=== PATIENT | male | born 1940 | race Caucasian/White ===

== ENCOUNTER 2021-07-20 12:35 | Emergency (ER) | payer MEDICARE, OTHER ==
[~2021-07-20] VITALS: Ht 172.7 cm; Wt 95.3 kg
--- OUTSIDE RECORDS SUMMARY | 2021-07-20 12:42 | XMS REPORT | Clinical Summary ---
Author Author [facility] Organization [facility] Address Unknown Phone Unavailable Care Team Providers Care Director Of Early Childhood Education Name Role Phone Marky Mccoy MD PP Allergies Comments Active Allergy Reactions Severity Noted Date Codeine 10/09/2019 Fentanyl 10/09/2019 Oxycodone 10/09/2019 Medications End Date Status Medication Sig Dispensed Refills Start Date Active amLODIPine (NORVASC) 10 Take 10 mg by 0 09/07/ 201 mg tablet mouth 1 (one) 9 time each day. Active ezetimibe (ZETIA) 10 mg Take 10 mg by 0 tablet mouth 1 (one) 9 time each day. Active INSULIN SUBCUTANEOUS Inject under 0 PUMP, NOVOLOG, 100 the skin UNIT/ML INSULIN PUMP continuously. INFUSION (NovoLOG) Active dulaglutide (TRULICITY) Inject under 0 1.5 mg/0.5 mL pen the skin. injector Active simvastatin (ZOCOR) 20 mg 0 tablet 0 Active LANTUS SOLOSTAR U-100 0 INSULIN 100 unit/mL (3 0 mL) insulin pen injection Active Problems Problem Noted Date Dementia associated with other underlying disease wit hout behavioral 10/09/2019 disturbance Last Assessment & Plan: Formatting of this note might be differ ent from the original. 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 He does not drive. 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 Memory s ignificant impaired on exam. MMSE: 04/26. No behavioral changes. Sx present ation consistent with dementia, specifically Alzheimer's. Reviewed the MRI brain scan which was completed on 12/05/2016 and showed Diffuse cerebral atrophy with some periventricular white matter small vessel ischemic krishnamurthy ge. CT head on 08/15/2019: Sulcal and ventricular prominence consistent w ith volume loss. Periventricular and deep white matter hypoattenuation. The most likely etiology is Alzheimer's dx. I advised pt to continue him living at home (rather than in a senior care) as she does have people who come to the house on a daily basis. I do not believe he would be able to get thr ough a neuropsychological exam. Previously failed Quetiapine 25 (2016), Remeron 15 (2017), Carvedilol 6.25 (2019), Midodrine (2016), Donepezil (), and Memantine (dizziness). Dizziness 10/09/2019 Last Assessment & Plan: Formatting of this note might be differ ent from the original. Waxing/waning, onset 2 yrs ago. Most li linda drug-induced. Discontinued Memantine. Reports no recent presyncopa l episodes. Last episode was in Sep 2019. Social History Date Tobacco Use Types Packs/Day Years Used Unknown If Ever Smoked Smokeless Tobacco: Never Used Comments Alcohol Use Standard Drinks/Week Not Currently 0 (1 standard drink = 0.6 o z pure alcohol) Sex Assigned at Date Recorded Not on file Industry Job Start Date Occupation Not on file Not on file Not on file Last Filed Vital Signs Reading Time Taken Comments Vital Sign 131/78 06/07/2020 3:14 PM CDT Blood Pressure 75 06/07/2020 3:14 PM CDT Pulse - - Temperature - - Respiratory Rate - - Oxygen Saturation - - Inhaled Oxygen Concentration 95.3 kg (210 lb) 06/07/2020 3:14 PM CDT Weight 185.4 cm (6' 1") 06/07/2020 3:14 PM CDT Height 27.71 06/07/2020 3:14 PM CDT Body Mass Index Plan of Treatment Health Maintenance Due Date Last Done Comments Lipid Panel 1940 Medicare Wellness 1940 MMR Vaccines (1 of 1 - 1940 Standard series) Varicella Vaccines (1 of 1940 2 - 2-dose childhood series) COVID-19 Vaccine (1) 1951 Depression Screening 1951 DTaP,Tdap,and Td Vaccines 1958 (1 - Tdap) Zoster Vaccines (1 of 2) 1989 Glaucoma Screening 65+ Yr 2004 Pneumococcal 65+ Yr (1 of 2004 1 - PPSV23) Influenza Vaccine (Season 06/28/2021 Ended) HIB Vaccines Aged Out No longer eligible based on patient's age to complete this topic HPV Vaccines Aged Out No longer eligible based on patient's age to complete this topic Hepatitis A Vaccines Aged Out No longer eligibl e based on patient's age to complete this topic Hepatitis B Vaccines Aged Out No longer eligibl e based on patient's age to complete this topic IPV Vaccines Aged Out No longer eligible based on patient's age to complete this topic Meningococcal Vaccine Aged Out No longer eligib le based on patient's age to complete this topic Results Not on filefrom Last 3 Months Insurance Type Payer Benefit Subscriber ID Effective Phone Address Plan / Dates Group MEDICARE MEDICARE [id number] 2004-P PART A AND resent B [id number] 2018-P FOR LIFE resent [phone] Advance Directives Patient Assessment Nurse Explanation Type Date Recorded Advance Directives and Living Will Power of News Production Supervisor Care Teams Start Date End Date Director Of Early Childhood Education Relationship Specialty 08/12/19 Marky Mccoy MD PCP - General Family [address] [place] [phone]
--- OUTSIDE RECORDS SUMMARY | 2021-07-20 12:42 | XMS REPORT | Continuity of Care Document ---
Author Author [facility] Organization [facility] Address [address] [place] [address] Phone Support Name Relationship Address Phone Siri Chavarria PRS [address] [place] [address] Marky Mccoy PRS [address] [place] [address] Allergies, Adverse Reactions, Alerts Allergen Type Severity Reaction Last Updated Verified Status hydrocodone Allergy Tayler re Chest pain, [facility] Yes Active tramadol Allergy Severe Chest pain, Irregular heart beat July 06, 2021 1:58pm Yes Active donepezil Adverse Reaction Moderate cried all the time/felt like he was going to July 06, 2021 1:58pm Yes Active Medications Medication Status Dose Units Route Directions Qty Days Start Date End Date Instructions Insulin Glargine (Lantus Solostar U-100 Insulin) 100 unit/mL (3 mL) insulin pen Discontinued 45 UNIT SUBCUT TWICE A DAY July 20, 2020 2:55pm November 02, 2020 12:42pm Insulin Aspart U-100 (Novolog Flexpen U- 100 Insulin) 100 unit/mL (3 mL) insulin pen Discontinued 15 UNIT SUBCUT THREE TIMES A DAY October 05, 2020 9:32am December 20, 2020 1:48pm Inject 15 units under the skin TID before meals Blood Sugar Diagnostic (Freestyle Lite Strips) strip Active 0 .ROUTE .MEDSUPPLY October 05, 2020 9:46am Use to test once da arnie Insulin Glargine (Lantus Solostar U-100 Insulin) 100 unit/mL (3 mL) insulin pen Discontinued 50 UNIT SUBCUT TWICE A DAY December 15, 2020 11:24am May 31, 2021 11:42am Ezetimibe Discontinued 10 MG PO DAILY 90 February 18th, 2021 7:18pm 2021 2:26pm Amlodipine (Norvasc) 10 mg tablet Di scontinued 10 MG PO D AILY December 15, 2020 7:19pm May 31, 2021 11:42am Insulin Aspart U-100 (Novolog Flexpen U- 100 Insulin) 100 unit/mL (3 mL) insulin pen Discontinued 15 UNIT SUBCUT THREE TIMES A DAY December 20, 2020 1:48pm March 08, 2021 9:03am Inject 15 unit s under the skin TID before meals Insulin Aspart U-100 (Novolog Flexpen U- 100 Insulin) 100 unit/mL (3 mL) insulin pen Active 15 UNIT SUBCUT THREE TIMES A DAY March 08, 2021 9:03am Inject 15 units under the skin TID befor e meals Ezetimibe Active 10 MG PO DAILY 2021 2:26pm Amlodipine (Norvasc) 10 mg tablet Active 10 MG PO DAILY May 31, 2021 11 :42am Insulin Glargine (Lantus Solostar U-100 Insulin) 100 unit/mL (3 mL) insulin pen Active 50 UNIT SUBCUT TWICE A DAY May 31, 2021 11:42am Dulaglutide Discontinued 1.5 MG SUBCUT .Q 7 Days July 08, 2019 2:13pm October 16, 2019 11:40am Inject 1 pen (0.5ml) under the skin every 7 days Insulin Glargine (Lantus Solostar U-100 Insulin) 100 unit/mL (3 mL) insulin pen Discontinued 80 UNIT SUBCUT DAILY AT BEDTIME July 08, 2019 2:17pm October 16, 2019 11:40am Inject 80 units under the skin at bedtime Pen Needle, Diabetic (Ulticare Pen Needl e) 31 gauge x 1/4" needle Active 0 .ROUTE .MEDSUPPLY July 08, 2019 2:18pm As directed Blood Sugar Diagnostic (Freestyle Lite Strips) strip Discontinued 0 .ROUTE .MEDSUPPLY July 08, 2019 2:19pm October 05, 2020 9:47am As directed Insulin Aspart U-100 (Novolog Flexpen U- 100 Insulin) 100 unit/mL (3 mL) insulin pen Discontinued 15 UNIT SUBCUT THREE TIMES A DAY July 08, 2019 2:20pm 2020 10:40am Inject 15 u nits under the skin TID before meals Memantine Discontinued 10 MG PO TWICE A DAY July 08, 2019 2:21pm October 16, 2019 11:16am Simvastatin Discontinued 10 MG PO EVERY EVENING July 08, 2019 2:22pm November 02, 2020 12:17pm Ezetimibe Discontinued 10 MG PO DAILY July 08, 2019 2:22pm December 15, 2020 7:20pm Duloxetine Discontinued 120 MG PO DAILY July 08, 2019 2:22pm November 30, 2019 10:23am Take 2 capsules (120mg total) once daily Amlodipine (Norvasc) 10 mg tablet Di scontinued 10 MG PO D AILY July 08, 2019 2:23pm December 15, 2020 7:20pm Carvedilol Discontinued 6.25 MG PO TWICE A DAY July 08, 2019 2:24pm October 16, 2019 11:16am C,E,Zinc,Copper [id number] (Ocuvite Adult 50 Plus) 250-5-1 mg capsule Active 1 CAP PO EVERY MORNING July 08, 2019 2:24pm Donepezil (Aricept) 10 mg tablet Dis continued 10 MG PO D AILY 30 July 08 9 3:13pm March 02, 2020 10:38am Blood Sugar Diagnostic (Freestyle Lite Strips) strip Discontinued 0 .ROUTE .MEDSUPPLY 100 July 08, 2019 3:14pm October 16, 2019 11:17am As directed Meclizine Discontinued 25 MG PO FOUR TIMES DAILY 120 October 16, 2019 11:38am March 02, 2020 10:39am Insulin Glargine (Lantus Solostar U-100 Insulin) 100 unit/mL (3 mL) insulin pen Discontinued 85 UNIT SUBCUT DAILY AT BEDTIME October 16, 2019 11:39am March 02, 2020 10:39am Inject 80 units under the skin at bedtim e Dulaglutide Discontinued 1.5 MG SUBCUT .Q 7 Days 2 October 16, 2019 11:39am March 02, 2020 10:38am Inject 1 pen ( 0.5ml) under the skin every 7 days Insulin Glargine (Lantus Solostar U-100 Insulin) 100 unit/mL (3 mL) insulin pen Discontinued 90 UNIT SUBCUT DAILY AT BEDTIME March 02, 2020 10:38am 2020 10:40am Duloxetine Discontinued 60 MG PO DAILY March 02, 2020 10:39am 2020 10:13am Dulaglutide (Trulicity) 0.75 mg/0.5 mL pen injector Discontinued 0.75 MG SUBCUT ONCE March 02, 2020 11:01am May 30 10:14am Take once a week Simvastatin Active 20 MG PO EVERY EVENING 2020 10:38am Insulin Aspart U-100 (Novolog Flexpen U- 100 Insulin) 100 unit/mL (3 mL) insulin pen Discontinued 15 UNIT SUBCUT THREE TIMES A DAY 2020 10:40am October 05, 2020 9:33am Inject 15 units under the skin TID before meals Insulin Glargine (Lantus Solostar U-100 Insulin) 100 unit/mL (3 mL) insulin pen Discontinued 45 UNIT SUBCUT TWICE A DAY 2020 10:40am July 20, 2020 3:03pm flu vacc [id number](65yr up)-PF 240 mcg/0 .7 mL intramuscular syringe Discontinued .7 ML IM ONCE 0.7 November 02, 2020 12:10pm October 12:30pm Insulin Glargine (Lantus Solostar U-100 Insulin) 100 unit/mL (3 mL) insulin pen Discontinued 50 UNIT SUBCUT TWICE A DAY November 02, 2020 12:41pm December 15, 2020 11:24am Dulaglutide (Trulicity) 1.5 mg/0.5 mL pen injector Discontinued 1.5 MG SUBCUT .Weekly November 30, 2019 10:23am March 02, 2020 10:38am Quetiapine (Seroquel) 25 mg tablet D iscontinued 25 MG PO D AILY November 30, 2019 10:41am March 02, 2020 10:39am Clopidogrel (Plavix) 75 mg tablet Di scontinued 75 MG PO D AILY April 04, 2021 11:07 am April 04, 2021 11:11am Meclizine Discontinued 25 MG PO TWICE A DAY April 04, 2021 11:07am April 04, 2021 11:11am Clopidogrel (Plavix) 75 mg tablet Di scontinued 75 MG PO D AILY April 04, 2021 11:1 0am April 04, 2021 11:29am Meclizine Discontinued 25 MG PO TWICE A DAY 180 April 04, 2021 11:10am April 04, 2021 11:29am Clopidogrel (Plavix) 75 mg tablet Active 75 MG PO DAILY 90 April 04, 2021 11:2 7am Cyclobenzaprine Active 5 MG PO DAILY AT BEDTIME 90 April 04, 2021 11:28am Meclizine Active 25 MG PO TWICE A DAY 180 April 04, 2021 11:28am flu vacc [id number](65yr up)-PF 240 mcg/0 .7 mL intramuscular syringe Discontinued 0.7 ML IM ONCE 0.7 July 06, 2021 1:49pm July 06, 2021 2:06pm Ketorolac Discontinued 10 MG PO Q8H July 08, 2020 10:34pm November 02, 2020 12:17pm Cephalexin Discontinued 1000 MG PO Q12H July 08, 2020 10:37pm November 02, 2020 12:17pm Tizanidine (Zanaflex) 4 mg tablet Di scontinued 4 MG PO Q8 H July 08 10:37pm November 02, 2020 12:17pm Problems Active Problems Medical Problem Onset Date Status Diabetes Active Dementia Active Hyperlipidemia Active Chronic kidney disease Active Carotid artery disease Active Chronic neck pain Acti ve HTN (hypertension) Act rehan Inactive/Resolved Problems Medical Problem Onset Date Status Encounter for laboratory testing for COVID-19 virus Resolved Bacteriuria Resolved Near syncope Resolved Neck pain Resolved Dehydration Resolved Procedures No procedure information available. Relevant Diagnostic Tests and/or Laboratory Data Laboratory Results Test Date/Time Result Interpretation Reference Range Result Comment Performing Site Hemoglobin A1c (Fingerstick) [facility] 2020 2:03pm 7.2 % Health Concerns Health Concerns may be documented in an alternate section. Advance Directives Advance Directive Response Recorded Date/Time Does the patient have an Advance Directive on File? No September 29, 2019 10:19am Do you have a Medical Power of Data Systems Analyst? N o September 29, 2019 10:19am Do you have a Health Care Proxy? No September 29, 2019 10:19am Do you have a Living Will? No September 29, 2019 10:19am Chief Complaint and Reason for Visit Chief Complaint 3 mo Diabetic Encounters Encounter Location(s) [facility] rival/Admit Date Discharge/Depart Date Provider(s) Departed Physician/Provider Office Visit [facility] July 06, 2021 1:49pm July 06, 2021 2:25pm Marky escalera MD Assessments No Assessments Information Available Family History Relationship Condition A ge at Onset Recorded Date/Time father Heart problem Unk nown brother Malignant neoplasm of pancreas Unknown sister Alcohol dependence Unknown Functional Status No Functional Status information available Goals Goals may be documented in an alternate section. 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 Home Phone: Payer Policy Id Coverage Id Subscriber's Name Subscriber Id Effective Date Expiration Date Medicare [id number] [id number] Deep [employer] [id number] 2004 Self Pay Self N/A [facility] [id number] Deep [employer] [id number] Social History Smoking Status Status Date of Observation Unknown if ever smoked June 8:00pm Observation Status Observation Response Chalino e of Response Smoking Status Never Smoked July 08, 2020 8:00pm Exposure to Secondhand Smoke No July 08, 2020 8:00pm Alcohol Use None 2019 8:00pm Illicit Drug Use No Jun 8:00pm Assigned Sex Male Vital Signs Vital Reading Result Ref erence Range Collection Date/Time Height 72 [in_i] July 06, 2021 1:58pm Weight 88.90 kg July 06, 2021 1:58pm Body Temperature 97.7 [degF] 97.5-100.3 July 06, 2021 1:58pm Heart Rate 89 /min 60-100 July 06, 2021 1:58pm Respiratory rate 20 /min 12-20 July 06, 2021 1:58pm Oxygen saturation by Pulse oximetry 99 % 95- 100 July 06, 2021 1:58pm BP Systolic 154 mm[Hg] 9 0-140 July 06, 2021 1:58pm BP Diastolic 92 mm[Hg] 6 0-90 July 06, 2021 1:58pm BMI (Body Mass Index) 26.6 kg/m2 July 06, 2021 1:58pm
--- OUTSIDE RECORDS SUMMARY | 2021-07-20 12:42 | XMS REPORT | Continuity of Care Document ---
Author Author [facility] Organization [facility] Address [address] [place] [address] Phone Support Name Relationship Address Phone Siri Chavarria PRS [address] [place] [address] Marky Mccoy PRS [address] [place] [address] Allergies, Adverse Reactions, Alerts Allergen Type Severity Reaction Last Updated Verified Status hydrocodone Allergy Tayler re Chest [facility], [facility] Yes Active tramadol Allergy [...] 2019 2:24pm October 16, 2019 11:16am C,E,Zinc,Copper [id number] (Ocuvite Adult 50 Plus) 250-5-1 mg capsule [...] 10:40am July 20, 2020 3:03pm flu vacc [id number](65yr up)-PF 240 mcg/0 .7 mL intramuscular syringe [...] 180 April 04, 2021 11:28am flu vacc [id number](65yr up)-PF 240 mcg/0 .7 mL intramuscular syringe [...] Result Comment Performing Site Hemoglobin A1c (Fingerstick) [facility] 2020 2:03pm 7.2 % Health Concerns Health Concerns may be documented in an alternate section. Advance Directives Advance Directive Response Recorded Date/Time Does the patient have an Advance Directive on File? No September 29, 2019 10:19am Do you have a Medical Power of Heel Attacher Wood? N o September 29, 2019 10:19am Do you have a Health Care Proxy? No September 29, 2019 10:19am Do you have a Living Will? 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 Home Phone: Payer Policy Id Coverage Id Subscriber's Name Subscriber Id Effective Date Expiration Date Medicare [id number] Deep [employer] [id number] 2005 Self Pay Self N/[facility] [id number] Deep Horner [id number] Social History Smoking Status Status Date of [...]
--- OUTSIDE RECORDS SUMMARY | 2021-07-20 12:42 | XMS REPORT | Clinical Summary ---
Author Author [facility] Organization [facility] Address Unknown Phone Unavailable Care Team Providers Care Supervisor Electron Tube Processing Name Role Phone Holly Bui RN Unavailable Carson Orosco DO PCP Dillon Aquino MD Unavailable Unavailable Source Comments Some departments are not documenting in the electronic medical record. If you d o not see the information that you expected, contact Release of Information in [facility] [employer] Information Management department at [phone] for further assistan ce in locating additional records.[facility] Allergies Comments Active Allergy Reactions Severity Noted Date Codeine PALPITATIONS, Medium 12/22/2010 SEE COMMENTS Morphine PALPITATIONS Medium 12/22/2010 Medications End Date Status Medication Sig Dispensed Refills Start Date Active omeprazole DR(+) Take 20 mg by 0 (PRILOSEC) 20 mg PO mouth at capsule bedtime daily. Active diltiazem CD (CARDIZEM Take 240 mg 0 CD) 240 mg PO capsule by mouth at bedtime daily. Active atenolol (TENORMIN) 50 mg Take 50 mg by 0 PO tablet mouth at bedtime daily. Active metformin-XR(+) Take 500 mg 0 (GLUCOPHAGE XR) 500 mg PO by mouth at tablet bedtime daily. Active lisinopril (PRINIVIL, Take 40 mg by 0 ZESTRIL) 40 mg PO tablet mouth at bedtime daily. Active ezetimibe-simvastatin Take 1 Tab by 0 (VYTORIN 10/10) 10-10 mg mouth at PO per tablet bedtime daily. Active citalopram (CELEXA) 20 mg Take 20 mg by 0 PO tablet mouth at bedtime daily. Active hydrochlorothiazide Take 12.5 mg 0 (HYDRODIURIL) 12.5 mg PO by mouth at Tab tablet bedtime daily. Active multivitamin (DAILY Take 1 Tab by 0 MULTIVITAMIN-MINERALS) PO mouth at tablet bedtime daily. Active aspirin EC 81 mg PO Take 81 mg by 0 tablet mouth at bedtime daily. Active oxycodone/acetaminophen Take 1-2 Tabs 60 Tab 0 (PERCOCET) 5/325 mg PO by mouth 1 tablet every 4 hours as needed for Pain. Active senna/docusate Take 1 Tab by 0 (SENOKOT-S) 8.6/50 mg PO mouth twice 1 tablet daily. As needed while using pain medication. Active Problems Problem Noted Date Cervical spinal stenosis 01/17/2011 Medical History Medical History Date Comments HTN (hypertension) Diabetes mellitus Cataracts, bilateral Headache(784.0) Social History Date Tobacco Use Types Packs/Day Years Used Never Smoker Sex Assigned at Date Recorded Not on file Last Filed Vital Signs Reading Time Taken Comments Vital Sign 171/96 01/18/2011 12:31 PM CDT Blood Pressure 58 01/18/2011 12:31 PM CDT Pulse 36.3 C (97.4 F) 01/18/2011 12:31 PM CDT Temperature - - Respiratory Rate 97% 01/18/2011 11:40 AM CDT Oxygen Saturation - - Inhaled Oxygen Concentration 109.1 kg (240 lb 8 oz) 01/16/2011 4:00 AM CDT Weight 183.1 cm (6' 0.1") 01/15/2011 6:10 PM CDT Height 32.53 01/15/2011 6:10 PM CDT Body Mass Index Plan of Treatment Health Maintenance Due Date Last Done Comments DTAP/TDAP VACCINES (1 - 1957 Tdap) PHYSICAL (COMPREHENSIVE) 1957 EXAM SHINGLES RECOMBINANT 1989 VACCINE (1 of 2) PNEUMONIA (PPSV23) 2004 VACCINE (1 of 1 - PPSV23) INFLUENZA VACCINE 07/28/2021 Results Not on filefrom Last 3 Months Insurance Type Payer Benefit Subscriber ID Effective Phone Address Plan / Dates Group PPO [facility] [id number] 2004 PREF CARE -Present BLUE [id number] (Work) 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 necessary based on Dx
[2021-07-20] MEDS ORDERED: LORazepam INJ 2 MG/ML (ATIVAN) VIAL IVP ONE (12:45)
--- NOTE | 2021-07-20 12:52 | ED General ---
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 AND PT NEEDS FULL ASSIST OUT OF VEHICLE PT WITH SEVERE DEMENTIA AND UNABLE TO PROVIDE ANY INFORMATION CAREGIVER STATES THEY WERE IN THE CAR, ON THE WAY TO DENTAL APPOINTMENT ( LIVES IN [place], [place]) WHEN PT SUDDENLY C/O BEING DIZZY AND SAYING HE NEEDED TO GO TO THE BATHROOM, THEN SUDDENLY GOT PALE AND "WOULDN'T RESPOND"--EYES OPEN/BLANK STARE, NO ACTUAL SYNCOPE, AND DID NOT STOP BREATHING CUSTOM CAR BUILDER STATES SHE COULD FEEL A CAROTID PULSE LASTED A FEW SECONDS AND NOW PT IS AWAKE AND REPEATEDLY AND CONTINUOUSLY YELLING "I GOTTA GO TO THE BATHROOM" "I'M GONNA SHIT MY PANTS" SHORTLY AFTER ARRIVAL, PT HAD A MASSIVELY LARGE BM--NORMAL BROWN COLOR, SOFT FORMED STOOL; PT CONTINUES TO YELL "I'M GONNA SHIT MY PANTS" "I'M GOING" "I'M SHITTING MY PANTS" (WAS ABLE TO GET PT ON BEDPAN BEFORE HE HAD BM) CUSTOM CAR BUILDER STATES PT IS DIABETIC--ACCUCHECK 282 SHE STATES HE HAS CHRONIC DIZZINESS/VERTIGO AND TAKES MECLIZINE DAILY SHE ALSO STATES PT ALSO HAS ESRD, NO DIALYSIS SHE STATES PT ALSO WITH CHRONIC NECK PAIN WITH MULTIPLE NECK SURGERIES, AND IS USUALLY HIS ONLY COMPLAINT/CHRONIC NECK PAIN CUSTOM CAR BUILDER AND REPORT THAT PT WENT ON HOSPICE A WEEK AGO FOR ESRD AND DEMENTIA ( [facility] ) PCP: CARMELITA [facility] Allergies and Home Medications Allergies Coded Allergies: No Allergy Information Available (Unverified , 07/20/21) Patient Home Medication List Home Medication List Reviewed: Yes Review of Systems Review of Systems Constitutional: see HPI Past Iydyiyw-Dyldpp-Trjcym Hx Past Medical History Surgery/Hospitalization HX: CERVICAL SPINE SURGERIES Surgeries: Yes Orthopedic Cardiac: Yes High Cholesterol, Hypertension Neurological: Yes Dementia, Vertigo Genitourinary: Yes Renal Failure Musculoskeletal: Yes (CHRONIC NECK PAIN, MULTIPLE C-SPINE SURGERIES) Endocrine: Yes Diabetes, Insulin dep Physical Exam Vital Signs Vital Signs - First Documented 07/20/21 12:35 Temp 35.9 Pulse 64 Resp 18 B/P (MAP) 128/86 (100) Pulse Ox 98 O2 Delivery Room Air Capillary Refill : Height, Weight, BMI Height: '" Weight: lbs. oz. kg; BMI Method: General Appearance: WD/WN, Other (PT NOTED ABOVE, SOMEWHAT AGITATED ABOUT HAVING TO HAVE A BM, AND YELLING THIS REPEATELY; PT HAS SOME DIFFICULTY FOLLOWING COMMANDS) Respiratory: Normal Breath Sounds, No Accessory Muscle Use, No Respiratory Distress Cardiovascular: Regular Rate, Rhythm, No Edema, No Murmur Gastrointestinal: Non Tender, Soft Extremity: Normal Capillary Refill, Normal Range of Motion, No Pedal Edema Neurologic/Psychiatric: Alert, No Motor/Sensory Deficits (GROSSLY INTACT), Other (NO FOCAL DEFICITS NOTED. ) Skin: Normal Color, Warm/Dry; No Rash Progress/Results/Core Measures Suspected Sepsis SIRS Temperature: Pulse: Respiratory Rate: Laboratory Tests 07/20/21 12:46: White Blood Count 12.9H Blood Pressure / Mean: Laboratory Tests 07/20/21 12:46: Creatinine 1.57H, INR Comment 1.0, Platelet Count 312, Total Bilirubin 0.7 Results/Orders Lab Results Laboratory Tests Test 07/20/21 12:45 07/20/21 12:46 07/20/21 13:40 Range/Units Glucometer 282 H 70-110 MG/DL White Blood Count 12.9 H 4.3-11.0 10^3/uL Red Blood Count 4.69 4.30-5.52 10^6/uL Hemoglobin 12.6 L 13.3-17.7 g/dL Hematocrit 38 L 40-54 % Mean Corpuscular Volume 80 80-99 fL Mean Corpuscular Hemoglobin 27 25-34 pg Mean Corpuscular Hemoglobin Concent 33 32-36 g/dL Red Cell Distribution Width 14.1 10.0-14.5 % Platelet Count 312 130-400 10^3/uL Mean Platelet Volume 10.3 9.0-12.2 fL Immature Granulocyte % (Auto) 1 % Neutrophils (%) (Auto) 53 42-75 % Lymphocytes (%) (Auto) 37 12-44 % Monocytes (%) (Auto) 7 0-12 % Eosinophils (%) (Auto) 2 0-10 % Basophils (%) (Auto) 0 0-10 % Neutrophils # (Auto) 6.8 1.8-7.8 10^3/uL Lymphocytes # (Auto) 4.8 H 1.0-4.0 10^3/uL Monocytes # (Auto) 0.9 0.0-1.0 10^3/uL Eosinophils # (Auto) 0.3 0.0-0.3 10^3/uL Basophils # (Auto) 0.1 0.0-0.1 10^3/uL Immature Granulocyte # (Auto) 0.1 0.0-0.1 10^3/uL Prothrombin Time 14.1 12.2-14.7 SEC INR Comment 1.0 0.8-1.4 Activated Partial Thromboplast Time 28 24-35 SEC D-Dimer 0.78 H 0.00-0.49 UG/ML Sodium Level 139 135-145 MMOL/L Potassium Level 3.3 L 3.6-5.0 MMOL/L Chloride Level 103 98-107 MMOL/L Carbon Dioxide Level 24 21-32 MMOL/L Anion Gap 12 5-14 MMOL/L Blood Urea Nitrogen 23 H 7-18 MG/DL Creatinine 1.57 H 0.60-1.30 MG/DL Estimat Glomerular Filtration Rate 43 BUN/Creatinine Ratio 15 Glucose Level 282 H 70-105 MG/DL Calcium Level 9.7 8.5-10.1 MG/DL Corrected Calcium 9.9 8.5-10.1 MG/DL Total Bilirubin 0.7 0.1-1.0 MG/DL Aspartate Amino Transf (AST/SGOT) 18 5-34 U/L Alanine Aminotransferase (ALT/SGPT) 20 0-55 U/L Alkaline Phosphatase 65 40-136 U/L Troponin I < 0.028 <0.028 NG/ML Total Protein 7.5 6.4-8.2 GM/DL Albumin 3.8 3.2-4.5 GM/DL Urine Color YELLOW Urine Clarity CLEAR Urine pH 6.0 5-9 Urine Specific [place] 1.025 H 1.016-1.022 Urine Protein 2+ H NEGATIVE Urine Glucose (UA) TRACE H NEGATIVE Urine Ketones NEGATIVE NEGATIVE Urine Nitrite NEGATIVE NEGATIVE Urine Bilirubin NEGATIVE NEGATIVE Urine Urobilinogen 2.0 < = 1.0 MG/DL Urine Leukocyte Esterase NEGATIVE NEGATIVE Urine RBC (Auto) TRACE-I NEGATIVE Urine RBC 5-10 H /HPF Urine WBC 2-5 /HPF Urine Squamous Epithelial Cells 0-2 /HPF Urine Crystals PRESENT H /LPF Urine Amorphous Sediment FEW ALICE URATES H /LPF Urine Bacteria TRACE /HPF Urine Casts NONE /LPF Urine Mucus NEGATIVE /LPF Urine Culture Indicated NO My Orders Orders - BRISA DSOUZA DO Cbc With Automated Diff (07/20/21 12:38) Protime With Inr (07/20/21 12:38) Partial Thromboplastin Time (07/20/21 12:38) Comprehensive Metabolic Panel (07/20/21 12:38) Fibrin Degradation Products (07/20/21 12:38) Troponin I (07/20/21 12:38) Ua Culture If Indicated (07/20/21 12:38) Chest 1 View, Ap/Pa Only (07/20/21 12:38) Ekg Tracing (07/20/21 12:38) Nothing By Mouth (07/20/21 Lunch) Accucheck Stat ONCE (07/20/21 12:38) Ed Iv/Invasive Line Start (07/20/21 12:38) Ed Iv/Invasive Line Start (07/20/21 12:38) Vital Signs Stroke Patient Q15M (07/20/21 12:38) Ct Head Wo-R/O Stroke (07/20/21 12:38) Intake & Output 06,14,22 (07/20/21 12:38) Monitor-Rhythm Ecg Trace Only (07/20/21 12:38) Dysphagia Screening Tool (07/20/21 12:38) Straight Cath For Spec.-Adult (07/20/21 12:39) Lorazepam Injection (Ativan Injection) (07/20/21 12:45) Medications Given in ED Current Medications Medications Dose Ordered Sig/Moo Route Start Time Stop Time Status Last Admin Dose Admin Lorazepam 2 mg ONCE ONCE IVP 07/20/21 12:45 07/20/21 12:46 DC 07/20/21 13:08 2 MG Vital Signs/I&O 07/20/21 12:35 Temp 35.9 Pulse 64 Resp 18 B/P (MAP) 128/86 (100) Pulse Ox 98 O2 Delivery Room Air Capillary Refill : Progress Note : Progress Note PT REMAINED AWAKE, ALERT, CONFUSED--PER CUSTOM CAR BUILDER IS NOW NORMAL BASELINE GCS 14 WITH BASELINE CONFUSION BEING ONLY ABNORMALITY GIVEN ATIVAN FOR AGITATION SO CT COULD BE DONE NO DETERIORATION IN PT'S CONDITION, AND DID NOT HAVE ANY EPISODES OF "UNRESPONSIVENESS" AT ANY TIME DURING ER STAY ONCE PT HAD FINALLY FINISHED HAVING BM, AND STAFF HAD COMPLETED IV ACCESS, AND OBTAINING CATH UA SPECIMEN, ETC. PT THEN RESTED AND NO LONGER YELLING. VITALS REMAINED STABLE NO DETERIORATION IN PT'S CONDITION DURING ER STAY ECG Initial ECG Impression Date: Jul 20, 2021 Initial ECG Impression Time: 12:36 Initial ECG Rate: 83 Initial ECG Rhythm: Normal Sinus (LBBB) Initial ECG Comparisson: No Previous ECG Available Diagnostic Imaging Comments CT HEAD--PER RADIOLOGIST REPORT AT 1446 FINDINGS: Advanced generalized parenchymal volume loss. No intracranial hemorrhage, mass effect, hydrocephalus, or extra-axial fluid collections. No CT evidence of a territorial infarction. Osseous structures are intact. Paranasal sinuses and mastoids are clear. IMPRESSION: 1. No acute intracranial CT findings. 2. Advanced generalized parenchymal volume loss. CXR--PER RADIOLOGIST REPORT AT 1446 FINDINGS: Single frontal view of the chest demonstrates normal heart size and pulmonary vascularity. The lungs are well aerated and clear. No large pleural effusion or pneumothorax is seen. The visualized osseous structures show no acute abnormalities. IMPRESSION: 1. No acute cardiopulmonary process. Reviewed: Reviewed by Me Departure Impression Primary Impression: Dementia Additional Impression: POSSIBLE VASOVAGAL EPISODE Disposition: 01 HOME, SELF-CARE Condition: Improved Departure-Patient Inst. Decision time for Depature: 14:48 Referrals: NO,LOCAL PHYSICIAN (PCP/Family) Primary Care Physician Patient Instructions: Dementia ED, Vasovagal Response (DC) Add. Discharge Instructions: LOTS OF CLEAR LIQUIDS CONTINUE YOUR REGULAR MEDICATIONS PRESCRIBED FOLLOW UP WITH YOUR DR NEEDED RETURN TO ER IF SYMPTOMS RETURN BRISA DSOUZA DO Jul 20, 2021 12:52
[2021-07-20 12:56] LABS: HEMOGLOBIN 12.6 g/dL (13.3-17.7); WHITE BLOOD COUNT 12.9 10^3/uL (4.3-11.0)
[2021-07-20 12:57] LABS: BASOPHILS # (AUTO) 0.1 10^3/uL (0.0-0.1); BASOPHILS % (AUTO) 0 % (0-10); EOSINOPHILS # (AUTO) 0.3 10^3/uL (0.0-0.3); EOSINOPHILS % (AUTO) 2 % (0-10); HEMATOCRIT 38 % (40-54); LYMPHOCYTES # (AUTO) 4.8 10^3/uL (1.0-4.0); LYMPHOCYTES % (AUTO) 37 % (12-44); MEAN CORPUSCULAR HEMOGLOBIN 27 pg (25-34); MEAN CORPUSCULAR HGB CONC 33 g/dL (32-36); MEAN CORPUSCULAR VOLUME 80 fL (80-99); MEAN PLATELET VOLUME 10.3 fL (9.0-12.2); MONOCYTES # (AUTO) 0.9 10^3/uL (0.0-1.0); MONOCYTES % (AUTO) 7 % (0-12); NEUTROPHILS # (AUTO) 6.8 10^3/uL (1.8-7.8); NEUTROPHILS % (AUTO) 53 % (42-75); PLATELET COUNT 312 10^3/uL (130-400)
[2021-07-20 13:09] LABS: ALBUMIN 3.8 GM/DL (3.2-4.5); CHLORIDE 103 MMOL/L (98-107); POTASSIUM 3.3 MMOL/L (3.6-5.0); SODIUM 139 MMOL/L (135-145)
[2021-07-20 13:10] LABS: FIBRIN DEGRADATION PRODUCTS 0.78 UG/ML (0.00-0.49); PROTHROMBIN TIME PATIENT 14.1 SEC (12.2-14.7)
[2021-07-20 13:11] LABS: CALCIUM 9.7 MG/DL (8.5-10.1)
[2021-07-20 13:12] LABS: GLUCOSE 282 MG/DL (70-105); TOTAL PROTEIN 7.5 GM/DL (6.4-8.2)
[2021-07-20 13:13] LABS: CARBON DIOXIDE 24 MMOL/L (21-32)
[2021-07-20 13:14] LABS: BILIRUBIN,TOTAL 0.7 MG/DL (0.1-1.0)
[2021-07-20 13:15] LABS: ALKALINE PHOSPHATASE 65 U/L (40-136); CREATININE SERUM 1.57 MG/DL (0.60-1.30); GFR ESTIMATED 43
[2021-07-20 13:16] LABS: BUN/CREATININE RATIO 15
[2021-07-20 13:18] LABS: ALANINE AMINOTRANSFERASE 20 U/L (0-55)
[2021-07-20 13:47] LABS: BILIRUBIN,URINE NEGATIVE (NEGATIVE); CLARITY,URINE CLEAR; COLOR,URINE YELLOW; GLUCOSE, URINE (UA) TRACE (NEGATIVE); KETONES,URINE NEGATIVE (NEGATIVE); LEUKOCYTE ESTERASE ,URINE NEGATIVE (NEGATIVE); NITRITE,URINE NEGATIVE (NEGATIVE); PROTEIN,URINE 2+ (NEGATIVE)
[2021-07-20 13:55] LABS: AMORPHOUS SEDIMENT,UR FEW AMOR URATES /LPF; BACTERIA,URINE TRACE /HPF; SQUAMOUS EPITHELIAL CELL,UR 0-2 /HPF
--- NOTE | 2021-07-20 14:35 | Diagnostic Imaging Report ---
INDICATION: AMS. COMPARISON: 08/25/2015. FINDINGS: Single frontal view of the chest demonstrates normal heart size and pulmonary vascularity. The lungs are well aerated and clear. No large pleural effusion or pneumothorax is seen. The visualized osseous structures show no acute abnormalities. IMPRESSION: 1. No acute cardiopulmonary process. Dictated by: Dictated on workstation # [id number]
--- NOTE | 2021-07-20 14:45 | Diagnostic Imaging Report ---
PROCEDURE: CT head wo r/o stroke. TECHNIQUE: Multiple contiguous axial images were obtained through the brain without the use of intravenous contrast. Auto Exposure Controls were utilized during the CT exam to meet ALARA standards for radiation dose reduction. INDICATION: Dizziness. Neurologic deficit. COMPARISON: None. FINDINGS: Advanced generalized parenchymal volume loss. No intracranial hemorrhage, mass effect, hydrocephalus, or extra-axial fluid collections. No CT evidence of a territorial infarction. Osseous structures are intact. Paranasal sinuses and mastoids are clear. IMPRESSION: 1. No acute intracranial CT findings. 2. Advanced generalized parenchymal volume loss. Dictated by: Dictated on workstation # [id number]
[2021-07-20 15:01] VITALS: BP 140/93
== END 2021-07-20 15:01 | disposition home or self-care (01) ==
LOC: ER 12:39
DX: F03.90 Unspecified dementia, unspecified severity, without behavioral disturbance, psychotic disturbance, mood disturbance, and anxiety (principal); I10 Essential (primary) hypertension; E11.9 Type 2 diabetes mellitus without complications
CPT/HCPCS: 36415; 51701; 70450; 71045; 80053; 81000; 82947; 84484; 85025; 85379; 85610; 85730; 93005; 93041